=== PATIENT | male | born 1975 | race Caucasian/White ===

== ENCOUNTER 2025-02-26 08:37 | Outpatient (OUT) | payer OTHER, SELFPAY ==
--- OUTSIDE RECORDS SUMMARY | 2023-11-29 05:15 | XMS_ITS | Continuity of Care Document ---
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 Role Phone Barbara Rangel DDS Unavailable Unavailable Allergies, Adverse Reactions, Alerts Substance Reaction Status Criticality No Known Allergies Active No Inform ation Medications Medication Instructions Dosage Effective Dates (start - stop) Status Comments amoxicillin 875 mg-potassium clavulanate 125 mg tablet take 1 tablet by oral route every 12 hours 1.00 tablet - No Longer Active ibuprofen 800 mg tablet take 1 tablet by oral route 3 times every day with food 800 MG - No Longer Active Procedures Procedure Date Zludocxch-ppikyvwcfo-fici Additional Nov Bitewig-single Film Oral Hygiene Instruction Limited Oral Eval Advance Directives Directive Yes / No Effective Date File Name No Information Encounters Encounter Description Practice Location Reason(s) For Visit Diagnoses Date Provider Providers Copied on Encounter [facility], [address] [place] [address], [id number], tel:[phone] Dental Clinic de (chief complaint) Encounter for screening for dental disorders Juan Carlos PEREZ Barbara. . tel:[phone] Family History Family Member Type Diagnosis Age At Onset No Information Payers Payer name Insurance type Covered libertarian ID Authoriza tion(s) Self Pay Cap 09 [id number] Social History Type Description Quantity Date Captured Comments Alcohol Use Details Unknown Caffeine Use Details Unknown Tobacco Use Status No Information Aug-01-2024 Smoking Status No Information Sex Male Sexual Orientation Straight or heterosexual Nov Gender Identity Male Chief Complaint And Reason For Visit From encounter dated '11/29/2023 09:15'. de (chief complaint). Description: de Reason For Referral Reason For Referral No Information Plan Of Treatment Date Type Action Status Goal Tdap. Due on due Goal Unhealthy drug use screening . Due on due Goal Depression screening. Due on due Goal Influenza vaccine. Due on Au due Goal Hepatitis C screening. Due o n due Goal Lipid panel. Due on 024 due Goal Tdap Vaccine. Due on 2023 due Goal PRAPARE ASSESSMENT. Due on A due History Of Present Illness Encounter Date Complaint History Of Prese nt Illness de de Functional Status Date Functional Assessmen t No Information Instructions Date Instruction Additional Infor mation No Information Assessments Type Assessment Date No Information Patient Care Teams Name Effective Dates (start - stop) Status Members No Information
--- OUTSIDE RECORDS SUMMARY | 2025-02-26 08:44 | XMS_ITS | Clinical Summary ---
Author Organization [facility] Address [address] [place] [address] Care Team Providers Care Route Sales Specialist Name Role Phone Freddy Duque DO Primary Care Provider [phone] Allergies Active AllergyReactionsCriticalityNoted DateCommentsIodinated Contrast Media Ouxierd0411/24/2024 Medications MedicationSigDispense QuantityRefillsLast FilledStart DateEnd DateStatus olmesartan (BENIcar) 20 MG tablet Take 20 mg by mouth DailyActive omeprazole (PriLOSEC) [address] capsule Take 40 mg by mouth in the morning. Take before meals. Do not crush or chew. Active fluticasone (Flonase) 50 MCG/ACT nasal spray Indications:OME (otitis media with effusion), right2 sprays on right side BID. Shake gently. Before first use, prime pump. After use, clean tip and replace cap. 48 g 5Active benzonatate (Tessalon) 200 MG capsule Take 200 mg by mouth 3 (three) times a day as needed for cough Do not crush or chew.01/30/2025Discontinued(Therapy completed) ofloxacin (Floxin) 0.3 % otic solution Indications:Chronic myringitis of right earAdminister 4 drops into the right ear in the morning and 4 drops before bedtime. Do all this for 7 days. 5 mL Expired Active Problems No known active problems Encounters DateTypeDepartmentCare KmrdVeqxcyzvjlr98/07/2025Orders Only [facility] [place] [facility] [address] [place] [address] Maria Luisa Preston MD 02/03/2025linisync Result Encounter [facility] External Department Unsolicited Maria Luisa Preston MD 01/30/2025 8:30 AM EDTOffice Visit [facility] [address] [place] [phone] Maria Luisa Preston MD OME (otitis media with effusion), right (Primary Dx); ETD (Eustachian tube dysfunction), right; Mixed conductive and sensorineural hearing loss of right ear with restricted hearing of left ear; Sensorineural hearing loss (SNHL) of left ear with restricted hearing of right ear; Chronic myringitis of right ear01/30/2025amboo flowsheet [facility] [address] [place] [phone] Maria Luisa Preston MD 01/30/20251740Aivsgl28/29/2025 2:30 PM EDTOffice Visit [facility] [address] [facility] [address] Shruti Elizondo S, AUD Mixed conductive and sensorineural hearing loss of right ear with restricted hearing of left ear (Primary Dx); Other specified disorders of eustachian tube, right ear01/26/2025amboo flowsheet [facility] [address] [place] [address] Shruti Elizondo, AUD 11/26/2024 10:00 AM EDTOffice Visit [facility] [place] [facility] [address] [place] [phone] Maria Luisa Preston MD OME (otitis media with effusion), right (Primary Dx); Foreign body of right ear, initial encounter; Heart cftkvi9711/26/2024amboo flowsheet [facility] [place] [facility] [address] [place] [phone] Maria Luisa Preston MD 11/26/2024Travelfrom Last 3 Months Immunizations ImmunizationAdministration DatesNext WxkByfy2711/17/2024 Family History Medical HistoryRelationNameCommentsCancerFatherCancerMotherRelationNameStatus CommentsFatherAliveMotherAlive Social History Tobacco UseTypesPacks/DayYears UsedDateSmoking Tobacco: Every DayCigarettes Smokeless Tobacco: CurrentChew Tobacco Cessation:Ready to Q uit: Not Asked; Counseling Given: Not Answered Alcohol UseStandard Drinks/WeekCommentsYes0 (1 standard drink = 0.6 oz pure alcohol)OCCSex and Gender InformationValueDate RecordedSex Assigned at BirthNot on fileLegal IloNxwa3207/12/2022 8:33 PM EDTGender IdentityNot on fileSexual OrientationNot on file Last Filed Vital Signs Vital SignReadingTime TakenCommentsBlood Kxkripwm923/52950 8:25 AM EDT Jezfb458401/30/2025 8:25 AM EDTTemperature--Respiratory Rate--Oxygen Saturation-- Inhaled Oxygen Concentration--Vhzeuf993 kg (258 lb)01/30/2025 8:25 AM EDTHeight 170.2 cm (5' 7 )01/30/2025 8:25 AM EDTBody Mass Index40.411 8:25 AM EDT Plan of Treatment DateTypeDepartmentCare Team (Latest Contact Info)Lrmtesyjuik65/22/2025 3:00 PM ESTOffice Visit [facility] [address] [place] [address] Shruti Elizondo S, AUD [address] [place] [address] Health MaintenanceDue DateLast DoneCommentsCT Qjeejxrehtja15/26/1974Colonoscopy 1975Colorectal Cancer Fqlsycirp14/26/1974FIT-DNA1973FIT1975 FOBT1975 1157Lfbhngbzviqhp62/26/1974MMR Vaccines (1 of 1 - Standard series) 1974Hepatitis B Vaccines (1 of 3 - 19+ 3-dose series)1992 DTaP/Tdap/Td Vaccines (2 - Td or Tdap)/OVID-19 Vaccine (2 - season)Influenza Vaccine (#1)2024HIB Vaccines Aged OutNo longer eligible based on patient's age to complete this topicHPV VaccinesAged OutNo longer eligible based on patient's age to complete this topic Hepatitis A VaccinesAged OutNo longer eligible based on patient's age to complete this topicIPV VaccinesAged OutNo longer eligible based on patient's age to complete this topicMeningococcal B VaccineAged OutNo longer eligible based on patient's age to complete this topicMeningococcal VaccineAged OutNo longer eligible based on patient's age to complete this topicPneumococcal Vaccine: Pediatrics (0 to 5 Years) and At-Risk Patients (6 to 64 Years)Aged OutNo longer eligible based on patient's age to complete this topicRotavirus VaccinesAged Out No longer eligible based on patient's age to complete this topic Procedures Procedure NamePriorityDate/TimeAssociated DiagnosisCommentsECG 12-LEADRoutine 02/03/2025 10:52 AM EDTFTM CBC W/ AUTO PKLBRdeouzq38/07/2025 7:54 AM EDT AUDITORY FUNCTION DBDGBRltaeac13/29/2025 3:21 PM EDT from Last 3 Months Results * ECG 12 lead (02/03/2025 10:52 AM EDT) Narrative Authorizing ProviderResult TypeResult StatusHilaelsa Preston MDECG ORDERABLES Final Result * (ABNORMAL) [facility] [place]/ AUTO DIFF (02/03/2025 7:54 AM EDT)ComponentValueRef RangeTest MethodAnalysis TimePerformed AtPathologist SignatureWBC8.44.0 - 11.0 E9/LFTMCRBC4.94.3 - 5.9 E12/OSOSBMKY28.613.5 - 17.5 gm/dMBKFAWCO57.737.7 - 49.0 %LUPKTXY58.0(H)10.9 - 14.2 %ACLBPJH35.927.0 - 34.0 gkKAOGVYCH96.631.4 - 36.0 gm/eAAZLMJYY65.580.0 - 100.0 fLFTMCMPV9.66.4 - 10.8 rYQWSMAWIKGXKV368.0 150.0 - 500.0 E9/LFTMCNEUTRO AUTO70.836.0 - 75.0 %FTMCLYMPH AUTO17.414.0 - 50.0 %FTMCMONO AUTO9.44.0 - 14.0 %FTMCEOS AUTO1.60.0 - 8.0 %FTMCBASOPHIL AUTO 0.80.0 - 2.0 %FTMCNEUTRO ABSOLUTE5.92.0 - 7.5 E9/LFTMCLYMPH ABSOLUTE1.51.0 - 4.0 E9/LFTMCMONO ABSOLUTE0.80.2 - 1.0 E9/LFTMCEOS ABSOLUTE0.10.0 - 0.5 E9/L FTMCBASOPHIL ABSOLUTE0.10.0 - 0.2 E9/LFTMCSpecimen (Source)Anatomical Location / LateralityCollection Method / VolumeCollection TimeReceived TimeBlood 02/03/2025 7:54 AM EDT1 8:33 AM EDT Narrative [facility] - 02/03/2025 8:42 AM EDT Original Ordering Provider: MD Maria Luisa Preston Authorizing ProviderResult TypeResult StatusMaria Luisa Preston MDCLINISYNCFinal ResultPerforming OrganizationAddressCity/State/ZIP CodePhone Number [facility] * Auditory function tests (01/26/2025 3:21 PM EDT) Narrative Shruti Elizondo AUD - 01/26/2025 3:21 PM EDT [employer] [facility] Audio indicated a mild to moderate sensorineural hearing loss in the left ear. The right ear exhibited a moderate to severe mixed hearing loss. Authorizing ProviderResult TypeResult StatusShruti DUAUDIOLOGY SERVICES ORDERABLESFinal Result from Last 3 Months Insurance Care Teams Team MemberRelationshipSpecialtyStart DateEnd Date Freddy Duque DO [address] [place] [phone] PCP - GeneralFamily Medicine11/18/24
--- NOTE | 2025-02-26 08:57 | ECG_ITS ---
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 Measurements Intervals Phil Campbell Rate: 79 P: 25 CT: 131 QRS: 7 QRSD: 82 T: 8 QT: 357 QTc: 410 Interpretive Statements SINUS RHYTHM SEPTAL MYOCARDIAL INFARCTION [40+ ms Q WAVE IN V1/V2], PROBABLY OLD Abnormal ECG No previous ECG available for comparison Electronically Signed On 02-26-2025 13:17:27 EDT by SATHISH CRUZ M.D.
--- NOTE | 2025-02-26 09:42 | PM.PRESUREVA ---
History of Present Illness History of Present Illness Chief complaint: Eustachian tube dysfunction, chronic myringitis Narrative: Patient presents for presurgical testing. The patient reports a long history of bilateral ear pain, headaches, ear infections, and hearing loss. The patient states he was originally scheduled for his procedure at [facility], but because of his blood pressure he needed cardiac clearance which has now been obtained. The patient is not currently taking antibiotics. He reports daily severe bilateral ear pain and headaches. He denies fever, epistaxis, dizziness, visual changes, or any other complaints. Review of Systems ROS Narrative REVIEW OF SYSTEMS: Negative except as stated in HPI, ten or more systems reviewed. Constitutional: No fever, chills, weakness ENT: No sore throat or epistaxis Cardiovascular: No edema, chest pain, palpitations, or activity intolerance Respiratory: No shortness of breath, cough, or wheezing Musculoskeletal: No joint pain or swelling Gastrointestinal: No abdominal pain, constipation, diarrhea, or vomiting Genitourinary: No dysuria or hematuria Neurological: No numbness, tingling, or weakness Psychiatric: No mood changes [facility] Medical History (Updated 02/26/25 @ 09:43 by Samantha Amaya NP) Chronic myringitis, right ear ?H73.11 - Chronic myringitis, right ear (ICD-10) Hearing loss ?H91.90 - Unspecified hearing loss, unspecified ear (ICD-10) Otalgia ?H92.09 - Otalgia, unspecified ear (ICD-10) Sleep apnea ?G47.30 - Sleep apnea, unspecified (ICD-10) Mild concentric left ventricular hypertrophy (LVH) ?I51.7 - Cardiomegaly (ICD-10) Heart murmur ?R01.1 - Cardiac murmur, unspecified (ICD-10) Tinnitus ?H93.19 - Tinnitus, unspecified ear (ICD-10) Sciatica ?M54.30 - Sciatica, unspecified side (ICD-10) Arthritis ?M19.90 - Unspecified osteoarthritis, unspecified site (ICD-10) Anxiety ?F41.9 - Anxiety disorder, unspecified (ICD-10) Snores ?R06.83 - Snoring (ICD-10) Bronchitis ?J40 - Bronchitis, not specified as acute or chronic (ICD-10) Headache ?R51.9 - Headache, unspecified (ICD-10) Dysfunction of both eustachian tubes ?H69.93 - Unspecified Eustachian tube disorder, bilateral (ICD-10) GERD (gastroesophageal reflux disease) ?K21.9 - Gastro-esophageal reflux disease without esophagitis (ICD-10) Hypertension ?I10 - Essential (primary) hypertension (ICD-10) Surgical History (Updated 02/26/25 @ 09:19 by Samantha Amaya NP) History of colonoscopy ?Z98.890 - Other specified postprocedural states (ICD-10) History of colon surgery ?Z98.890 - Other specified postprocedural states (ICD-10) Family History (Updated 02/26/25 @ 09:19 by Samantha Amaya NP) Other Family history of cancer Family history of hypertension Social History (Updated 02/26/25 @ 09:15 by Samantha Amaya NP) Within the past year, how often did you have a drink containing alcohol: 2-3 times a week Smoking status: Current every day smoker What tobacco products do you use: cigarettes Cigarettes per day: 10 Years smoked: 35 Smoking pack-years: 17.50 Non-prescribed substance use: denies use Previous occupational history: [employer] Highest level of school completed/degree received: high school graduate Meds Home Medications and Allergies Home Medications ?Medication ?Instructions ?Recorded ?Confirmed ?Type albuterol sulfate 90 mcg/actuation 2 inh inhalation Q4H PRN shortness 02/26/25 02/26/25 History aerosol inhaler of breath or wheezing fluticasone propionate 50 2 spray intranasal QPM 02/26/25 02/26/25 History mcg/actuation nasal spray,suspension olmesartan 40 mg tablet 40 mg PO DAILY 02/26/25 02/26/25 History omeprazole 40 mg capsule,delayed 40 mg PO DAILY 02/26/25 02/26/25 History release Allergies Allergy/AdvReac Type Severity Reaction Status Date / Time Iodinated Contrast Media Allergy Hives Verified 02/26/25 09:12 Exam Narrative Exam Narrative: Constitutional: Awake, alert, comfortable, well-appearing, nontoxic, interactive, vital signs as charted Head: Normocephalic, atraumatic Eyes: Conjunctiva and lids normal to inspection, pupils normal ENT: Bilateral TM effusion, right greater than left; naris patent, posterior oropharynx clear, oral mucosa moist Neck: Supple, normal appearance, normal range of motion, no meningeal signs, no lymphadenopathy Respiratory: No respiratory distress, breath sounds clear Cardiovascular: Regular rate and rhythm, faint systolic murmur noted Musculoskeletal: Normal gait, no swelling or edema Skin: No rashes or induration, no lesions, only visible skin inspected Neuro: No neurological deficits, normal sensation Psychiatric: Oriented ?3, normal affect Assessment and Plan Assessment and Plan (1) Chronic myringitis, right ear: (2) Hearing loss: (3) Otalgia: (4) Tinnitus: (5) Dysfunction of both eustachian tubes: Plan Right myringotomy and insertion of ventilation tube/t-tube, nasal endoscopy scheduled with Dr. Preston March 05, 2025.
== END 2025-02-26 08:38 | disposition home or self-care (01) ==
PROVIDERS: PCP Family Medicine; Visit Provider Otolaryngology
DX: Z01.810 Encounter for preprocedural cardiovascular examination (principal); Z01.818 Encounter for other preprocedural examination; H69.91 Unspecified Eustachian tube disorder, right ear
CPT/HCPCS: 93005; G0463

== ENCOUNTER 2025-03-05 09:56 | Day surgery (SDC) | payer OTHER, SELFPAY ==
[2025-02-26 09:35] VITALS: BP 161/103; PULSE 83; TEMP 36.4; O2SAT 98; BMI 41.6
[2025-03-05] VITALS (11 sets, daily range): BP systolic 112–173; BP diastolic 69–92; PULSE 75–85; TEMP 36.6–36.7; O2SAT 90–95; BMI 40.2
--- NOTE | 2025-03-05 | OP_ITS ---
OPERATION DATE: 03/05/2025 PRIMARY CARE PHYSICIAN: Blayne Stein M.D. SURGEON: Maria Luisa Preston M.D. PREOPERATIVE DIAGNOSIS: Right otitis medial with effusion and eustachian tube dysfunction. POSTOPERATIVE DIAGNOSIS: Right otitis medial with effusion and eustachian tube dysfunction. PROCEDURE: Right myringotomy and tube with microdissection, placement of a T- tube and a nasal endoscopy. ANESTHESIA: General LMA. COMPLICATIONS: None. FINDINGS: Dry right middle ear and no nasopharyngeal path evident on endoscopy. INDICATIONS: This 49-year-old man presented with right mixed hearing loss and otitis medial with effusion, unresponsive to aggressive medical management. PROCEDURE: Patient identified in the holding area and taken back to the OR where he was placed in the supine position. After induction of general anesthesia by LMA, Afrin soaked patties were placed in each side of the nose, and attention was then turned to the right ear. An anterior radial myringotomy was performed, and a modified Jordan?s T-tube was folded, inserted in the middle ear and opened in the middle ear using microdissection. Attention was then returned to the nose. A 0 degree nasal endoscope was used to examine the nasopharynx, and there was no path evident. Patient was then awakened and taken to the recovery room in good condition. RACHEL
--- OUTSIDE RECORDS SUMMARY | 2025-03-05 10:00 | XMS_ITS | Encounter Summary ---
Author Organization [facility] Address [address] [place] [address] Care Team Providers Care Cosmetologist Name Role Phone Freddy Duque DO Primary Care Provider Encounter Details DateTypeDepartmentCare Team (Latest Contact Info)Dcphvrhihzl52/30/2025linisync Result Encounter [facility] External Department Unsolicited Amparo Preston MD [address] [facility] [facility] [address] [place] [address] Social History Tobacco UseTypesPacks/DayYears UsedDateSmoking Tobacco: Every DayCigarettes Smokeless Tobacco: CurrentChewAlcohol UseStandard Drinks/WeekCommentsYes0 (1 standard drink = 0.6 oz pure alcohol)OCCSex and Gender InformationValueDate RecordedSex Assigned at BirthNot on fileLegal VzxQkml5107/12/2022 8:33 PM EDT Gender IdentityNot on fileSexual OrientationNot on filedocumented as of this encounter Plan of Treatment DateTypeDechambers medical centerCare Team (Latest Contact Info)Ehswwfovauu16/22/2025 3:00 PM ESTOffice Visit [facility] [address] [place] [phone] ElizondoShruti S, AUD [address] [place] [address] documented as of this encounter Procedures Procedure NamePriorityDate/TimeAssociated DiagnosisCommentsECG 12-LEAD02/26/2025 7:26 AM EDT documented in this encounter Results * ECG 12-LEAD (02/26/2025 7:26 AM EDT)Anatomical RegionLateralityModalityOther Specimen (Source)Anatomical Location / LateralityCollection Method / Volume Collection TimeReceived Time02/26/2025 7:26 AM EDT Narrative 02/26/2025 1:17 PM EDT [facility] ?[address] ? [place] [address] ? Electrocardiograph Report ? Signed ? Patient: LEONIE CALHOUN W ?MR#: [id number] ?? : 1975 ?Acct:[id number] ?? Age/Sex: 49 / M ?ADM Date: 02/26/25 ?? Loc: PST ? Attending Dr: Amparo Preston M.D. ? Ordering Physician: Amparo Preston M.D. ?? Date of Service: 02/26/25 ?? Procedure(s): ECG 12 lead ?? Accession Number(s): [id number] ? cc: ?[facility] ? Test Date: ?2025-02-26 ?? Pat Name: ? LEONIE CALHOUN ? Department: ? Room: ? - ?? Gender: ? Male ? 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 : ?1975 ? Requested By: AMPARO PRESTON ?? Order Number: [id number] ?Reading MD: ?? SATHISH ??Sherrie CRUZ ? Measurements ?? Intervals ?[place] ? Rate: ? 79 ? P: ?25 ?? MS: ? 131 ?QRS: ?7 ?? QRSD: ? 82 ? T: ?8 ?? QT: ? 357 ? QTc: ?410 ? Interpretive Statements ?? SINUS RHYTHM ?? SEPTAL MYOCARDIAL INFARCTION [40+ ms Q WAVE IN V1/V2], PROBABLY OLD ?? Abnormal ECG ?? No previous ECG available for comparison ?? Electronically Signed On 02-26-2025 13:17:27 EDT by SATHISH ??Sherrie CRUZ ? Dictated By: ?SATHISH CRUZ ? Signed By: ?02/26/25 1317 ? DD/ 0726 ? TD/TT: ? [employer] Iam Consultant: Procedure Note Radiology, Radiologist, MD - 02/26/2025 [place] [address] Electrocardiograph Report Signed Patient: LEONIE CALHOUN R#: [id number] : 1975Acct:[id number] Age/Sex: 49 / MADM Date: 02/26/25 Loc: PST Attending Dr: Amparo Prestno M.D. Ordering Physician: Amparo Preston M.D. 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 Measurements Intervals [place] Rate: 79 P: 25 MS: 131 QRS: 7 QRSD: 82 T: 8 QT: 357 QTc: 410 Interpretive Statements SINUS RHYTHM SEPTAL MYOCARDIAL INFARCTION [40+ ms Q WAVE IN V1/V2], PROBABLY OLD Abnormal ECG No previous ECG available for comparison Electronically Signed On 02-26-2025 13:17:27 EDT by SATHISH CRUZ M.D. Dictated By: SATHISH CRUZ Signed By:02/26/25 1317 DD/ 0726 TD/TT: [employer] Iam Consultant: Authorizing ProviderResult TypeResult StatusHilary Donta Preston MDCLINISYNC IMAGING Final Result documented in this encounter Visit Diagnoses Not on filedocumented in this encounter Care Teams Team MemberRelationshipSpecialtyStart DateEnd Date Freddy Duque DO [address] [place] [phone] PCP - GeneralFamily Medicine11/18/24documented as of this encounter
--- OUTSIDE RECORDS SUMMARY | 2025-03-05 10:01 | XMS_ITS | Clinical Summary ---
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 48 g 5Active ofloxacin (Floxin) 0.3 % otic solution Indications:Chronic myringitis of right earAdminister 4 drops into the right ear in the morning and 4 drops before bedtime. Do all this for 7 days. 5 mL Expired Active Problems No known active problems Encounters DateTypeDepartmentCare TsprJvybdkasrxd07/30/2025linisync Result Encounter [facility] Unsolicited Maria Luisa Preston MD 02/03/2025Orders Only [facility] [address] [place] [phone] Maria Luisa Preston MD 02/03/2025linisync Result Encounter [facility] External [facility] Unsolicited Maria Luisa Preston MD 01/30/2025 8:30 AM EDTOffice Visit [facility] [address] [place] [phone] Maria Luisa Preston MD OME (otitis media with effusion), right (Primary Dx); ETD (Eustachian tube dysfunction), right; Mixed conductive and sensorineural hearing loss of right ear with restricted hearing of left ear; Sensorineural hearing loss (SNHL) of left ear with restricted hearing of right ear; Chronic myringitis of right ear01/30/2025amb flowsheet [facility] [address] [place] [phone] Maria Luisa Preston MD 01/30/20253088Xktovl00/29/2025 2:30 PM EDTOffice Visit [facility] [address] [place] [phone] Shruti Elizondo, AUD Mixed conductive and sensorineural hearing loss of right ear with restricted hearing of left ear (Primary Dx); Other specified disorders of eustachian tube, right ear01/26/2025amb flowsheet [facility] [address] [place] [phone] Shruti Elizondo, AUD from Last 3 Months Immunizations ImmunizationAdministration DatesNext TopEgce8811/17/2024 Family History Medical HistoryRelationNameCommentsCancerFatherCancerMotherRelationNameStatus CommentsFatherAliveMotherAlive Social History Tobacco UseTypesPacks/DayYears UsedDateSmoking Tobacco: Every DayCigarettes Smokeless Tobacco: CurrentChew Tobacco Cessation:Ready to Q uit: Not Asked; Counseling Given: Not Answered Alcohol UseStandard Drinks/WeekCommentsYes0 (1 standard drink = 0.6 oz pure alcohol)OCCSex and Gender InformationValueDate RecordedSex Assigned at BirthNot on fileLegal VnaYdvy4907/12/2022 8:33 PM EDTGender IdentityNot on fileSexual OrientationNot on file Last Filed Vital Signs Vital SignReadingTime TakenCommentsBlood Ivmihtmy528/14569 8:25 AM EDT Blazw561301/30/2025 8:25 AM EDTTemperature--Respiratory Rate--Oxygen Saturation-- Inhaled Oxygen Concentration--Rqilqr752 kg (258 lb)01/30/2025 8:25 AM EDTHeight 170.2 cm (5' 7 )01/30/2025 8:25 AM EDTBody Mass Index40.411 8:25 AM EDT Plan of Treatment DateTypeDepartmentCare Team (Latest Contact Info)Bzfexusguzc54/22/2025 3:00 PM ESTOffice Visit [facility] [address] [place] [address] Shruti Elizondo S, AUD [address] [place] [address] Health MaintenanceDue DateLast DoneCommentsCT Eeuzrbqlcsbz01/26/1974Colonoscopy 1973Colorectal Cancer Cigltwggo26/26/1974FIT-DNA1973FIT1973 FOBT1973 4557Ymspeigquucoi17/26/1974COVID-19 Vaccine ( season) 501/01/2022Influenza Vaccine (#1)2024Pneumococcal Vaccine: Pediatrics (0 to 5 Years) and At-Risk Patients (6 to 64 Years)Aged OutNo longer eligible based on patient's age to complete this topic Procedures Procedure NamePriorityDate/TimeAssociated DiagnosisCommentsECG 12-LEAD02/26/2025 7:26 AM EDT ECG 12-QGNTKyufche30/07/2025 10:52 AM EDTFT[facility] CBC W/ AUTO DMYVZqoiovr27/07/2025 7:54 AM EDT AUDITORY FUNCTION JXBXWJzfqyqb44/29/2025 3:21 PM EDT from Last 3 Months Results * ECG 12-LEAD (02/26/2025 7:26 AM EDT)Anatomical RegionLateralityModalityOther Specimen (Source)Anatomical Location / LateralityCollection Method / Volume Collection TimeReceived Time02/26/2025 7:26 AM EDT Narrative 02/26/2025 1:17 PM EDT [facility] ?[address] ? [place] [address] ? Electrocardiograph Report ? Signed ? Patient: LEONIE CALHOUN W ?MR#: [id number] ?? : 1975 ?Acct:[id number] ?? Age/Sex: 49 / M ?ADM Date: 02/26/25 ?? Loc: PST ? Attending Dr: Maria Luisa Preston M.D. ? Ordering Physician: Maria Luisa Preston M.D. ?? Date of Service: 02/26/25 ?? Procedure(s): ECG 12 lead ?? Accession Number(s): [id number] ? cc: ?[facility] ? Test Date: ?2025-02-26 ?? Pat Name: ? LEONIE CALHOUN ? Department: ? Room: ? - ?? Gender: ? Male ? [employer] Cook: ? : ?1975 ? Requested By: MARIA LUISA PRESTON ?? Order Number: [id number] ?Reading MD: ?? SATHISH ??Sherrie CRUZ ? Measurements ?? Intervals ?[place] ? Rate: ? 79 ? P: ?25 ?? AL: ? 131 ?QRS: ?7 ?? QRSD: ? [...] ? Signed By: ?02/26/25 1317 ? DD/ 5 ? TD/TT: ? Tile Sorter: Procedure Note Radiology, Radiologist, MD - 02/26/2025 [place] [address] Electrocardiograph Report Signed Patient: LEONIE CALHOUN R#: [id number] : 1975Acct:[id number] Age/Sex: 49 / MADM Date: 02/26/25 Loc: PST Attending Dr: Maria Luisa Preston M.D. Ordering Physician: Maria Luisa Preston M.D. 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 Measurements Intervals [place] Rate: 79 P: 25 AL: 131 QRS: 7 QRSD: 82 T: 8 QT: 357 QTc: 410 Interpretive Statements SINUS RHYTHM SEPTAL MYOCARDIAL INFARCTION [40+ ms Q WAVE IN V1/V2], PROBABLY OLD Abnormal ECG No previous ECG available for comparison Electronically Signed On 02-26-2025 13:17:27 EDT by SATHISH CRUZ M.D. Dictated By: SATHISH CRUZ Signed By:02/26/25 1317 DD/ 5 TD/TT: Tile Sorter: Authorizing ProviderResult TypeResult StatusHilaelsa Preston MDCLINISYNC IMAGING Final Result * ECG 12 lead (02/03/2025 10:52 AM EDT) Narrative Authorizing ProviderResult TypeResult StatusMaria Luisa Preston MDECG ORDERABLES Final Result * (ABNORMAL) [facility] [place]/ AUTO DIFF (02/03/2025 7:54 AM EDT)ComponentValueRef RangeTest MethodAnalysis TimePerformed AtPathologist SignatureWBC8.44.0 - 11.0 E9/LFTMCRBC4.94.3 - 5.9 E12/KQUMBZXC83.613.5 - 17.5 gm/aBFBXBUQE36.737.7 - 49.0 %VJDGXUU29.0(H)10.9 - 14.2 %DXEIUCJ16.927.0 - 34.0 cfFFVIBDPI59.631.4 - 36.0 gm/kPBYKEVNM26.580.0 - 100.0 fLFTMCMPV9.66.4 - 10.8 mXXVGQDTKHDCJR056.0 150.0 - 500.0 E9/LFTMCNEUTRO AUTO70.836.0 - 75.0 [...] MD Maria Luisa Preston Authorizing ProviderResult TypeResult StatusHilou Preston MDCLINISYNCFinal ResultPerforming OrganizationAddressCity/State/ZIP CodePhone Number [facility] * Auditory function tests (01/26/2025 3:21 PM EDT) Narrative Shruti Elizondo AUD - 01/26/2025 3:21 PM EDT [facility] indicated a mild to moderate sensorineural hearing loss in the left ear. The right ear exhibited a moderate to severe mixed hearing loss. Authorizing ProviderResult TypeResult Jaclyn DUAUDIOLOGY SERVICES ORDERABLESFinal Result from Last 3 Months Insurance Care Teams Team MemberRelationshipSpecialtyStart DateEnd Date Freddy Duque DO [facility] [place] [address] PCP - GeneralFamily Medicine11/18/24
[2025-03-05] MEDS: OXYMETAZOLINE HCL 0.05% NASAL SPRAY 30 SPRAY NS (11:16)
[2025-03-05] MEDS: CIPROFLOXACIN HCL/DEXAMETH 0.3%/0.1% OTIC SUSP 150 DROP/7.5 ML BOTTLE OT (11:18)
[2025-03-05] MEDS: ACETAMINOPHEN 325 MG TABLET 650 MG PO (12:33)
== END 2025-03-05 12:47 | disposition home or self-care (01) ==
LOC: SURGOUT 09:57
PROVIDERS: PCP Family Medicine; Visit Provider Otolaryngology
PROC: (CPT 126; principal; 2025-03-05 11:00)
PROC: (CPT 126; 2025-03-05 11:00)
DX: H69.91 Unspecified Eustachian tube disorder, right ear (principal); H65.91 Unspecified nonsuppurative otitis media, right ear; H90.71 Mixed conductive and sensorineural hearing loss, unilateral, right ear, with unrestricted hearing on the contralateral side; F17.210 Nicotine dependence, cigarettes, uncomplicated; H92.03 Otalgia, bilateral; I10 Essential (primary) hypertension; K21.9 Gastro-esophageal reflux disease without esophagitis; E66.01 Morbid (severe) obesity due to excess calories; Z68.41 Body mass index [BMI] 40.0-44.9, adult
CPT/HCPCS: 31231; 69436; J1100; J1200; J2405; J2704; J3010